=== PATIENT | female | born 1970 | race Caucasian/White ===

== ENCOUNTER → 2019-11-16 | Outpatient (CLI) | payer SELFPAY ==
--- NOTE | 2019-11-17 06:56 | XR ---
EXAMINATION TYPE: XR wrist complete LT, XR hand complete LT DATE OF EXAM: 11/16/2019 CLINICAL HISTORY: Pain and lump after injury 2-3 weeks ago. TECHNIQUE: Frontal, lateral and oblique images of the left hand and wrist are obtained. Additional f ourth scaphoid view left wrist is performed. COMPARISON: None FINDINGS: There is no acute fracture/dislocation evident in the left wrist . Moderate to severe narr owing with mild to moderate spurring base of first metacarpal with subchondral cystic change. The ov erlying soft tissue appears unremarkable. Images of the left hand show no acute fracture or dislocation. Mild narrowing throughout the PIP and DIP joints of the phalanges without significant spurring. Overlying soft tissue is unremarkable. IMPRESSION: There is no acute fracture or dislocation in the left hand or wrist.
== END | disposition home or self-care (01) ==
LOC: RAD 17:51
PROVIDERS: ATTEND Physician Assistant
DX: M25.532 Pain in left wrist (principal)

== ENCOUNTER → 2020-05-31 | Outpatient (CLI) | payer OTHER ==
--- NOTE | 2020-05-31 16:13 | US ---
EXAMINATION TYPE: US thyroid st tissue head/neck DATE OF EXAM: 05/31/2020 COMPARISON: NONE CLINICAL HISTORY: R79.89 other specified abnormal findings of blood. abn labs, no symptoms per patien t GLAND SIZE: Right Lobe: 4.2 x 1.3 x 1.4 cm Overall Parenchyma: homogenous Left Lobe: 4.7 x 1.4 x 1.1 cm Overall Parenchyma: homogeneous Isthmus Thickness: 0.1 cm NODULES RIGHT: # of nodules measured on right: 0 LEFT: # of nodules measured on left: 0 ISTHMUS: # of nodules measured in the isthmus: 0 Bilateral neck scanned, no evidence of lymphadenopathy. IMPRESSION: Normal thyroid scan
== END | disposition home or self-care (01) ==
LOC: RADUSWWP 15:49
PROVIDERS: ATTEND Pediatrics
DX: R79.89 Other specified abnormal findings of blood chemistry (principal)
CPT/HCPCS: 76536

== ENCOUNTER → 2020-08-11 | Outpatient (CLI) | payer OTHER ==
--- NOTE | 2020-08-12 13:21 | MM ---
Reason for exam: screening (asymptomatic). Last mammogram was performed 2 years and 2 months ago. History: Taking hormonal contraceptives beginning at age 47. Physical Findings: A clinical breast exam by your physician is recommended on an annual basis and results should be correlated with mammographic findings. MG 3D Screening Mammo W/Cad Bilateral CC and MLO view(s) were taken. Prior study comparison: June 05, 2018, mammogram, performed at [facility]. June 04, 2017, mammogram, performed at [facility]. The breast tissue is heterogeneously dense. This may lower the sensitivity of mammography. There is no discrete abnormality. No significant changes when compared with prior studies. ASSESSMENT: Negative, BI-RAD 1 RECOMMENDATION: Routine screening mammogram of both breasts in 1 year.
== END | disposition home or self-care (01) ==
LOC: RADMAMWWP 10:05
PROVIDERS: ATTEND Obstetrics & Gynecology
DX: Z12.31 Encounter for screening mammogram for malignant neoplasm of breast (principal)
CPT/HCPCS: 77063; 77067